=== PATIENT | male | born 1940 | race Caucasian/White ===

== ENCOUNTER 2017-05-21 10:56 | Day surgery (SDC) | payer MEDICARE ==
[2016-11-06 13:52] VITALS: BMI 21.9
[2017-05-21] MEDS ORDERED: Lactated Ringer's 500 ML IV ONE (12:03)
[2017-05-21 12:19] VITALS: TEMP 99.3
[2017-05-21] MEDS ORDERED: Propofol 10 mg/ml Inj (20 ML) ONE (13:10)
[2017-05-21 14:02] VITALS: BP 134/84; PULSE 88; RESP 17; O2SAT 99
== END 2017-05-21 14:04 | disposition home or self-care (01) ==
LOC: H.ENDO 10:56
PROVIDERS: ATTEND Internal Medicine Gastroenterology
DX: R13.10 Dysphagia, unspecified (principal); I10 Essential (primary) hypertension; K22.2 Esophageal obstruction
CPT/HCPCS: 43220; J2001; J2704; J7120

== ENCOUNTER 2017-06-04 09:00 | Day surgery (SDC) | payer MEDICARE ==
[2016-11-06 13:52] VITALS: BMI 21.9
[2017-06-04] MEDS ORDERED: Lactated Ringer's 500 ML IV ONE (09:23)
[2017-06-04] MEDS ORDERED: Propofol 10 mg/ml Inj (20 ML) ONE (11:04)
[2017-06-04 11:29] VITALS: PULSE 100; TEMP 97.8
[2017-06-04 11:39] VITALS: BP 126/82; RESP 19; O2SAT 10
== END 2017-06-04 12:35 | disposition home or self-care (01) ==
LOC: H.ENDO 09:00
PROVIDERS: ATTEND Internal Medicine Gastroenterology
DX: R13.10 Dysphagia, unspecified (principal); K22.2 Esophageal obstruction; I10 Essential (primary) hypertension
CPT/HCPCS: 43235; C1726; J2001; J2704; J7120